=== PATIENT | female | born 1955 | race Caucasian/White ===

== ENCOUNTER → 2024-01-01 | Outpatient (CLI) | payer MEDICARE, BC ==
[2024-01-01 15:22] LABS: Chol/HDL Ratio 3.51 Ratio; LDL Cholesterol,Calculated 107.3 mg/dL (0.0-131.0); VLDL Calculation 18.56 mg/dL (5.00-40.00)
== END | disposition home or self-care (01) ==
LOC: LABWHC1 08:55
DX: E78.2 Mixed hyperlipidemia (principal)
CPT/HCPCS: 36415; 80061; 83036; 83695; 86141

== ENCOUNTER → 2024-01-14 | Outpatient (CLI) | payer MEDICARE, BC ==
[~2024-01-14] MED LIST: REGADENOSON 0.4 MG/5 ML SYRINGE IV PRN
--- NOTE | 2024-01-14 11:02 | NM ---
EXAMINATION TYPE: NM myocardial SPECT single DATE OF EXAM: 01/14/2024 COMPARISON: NONE CLINICAL INDICATION: Female, 68 years old with history of R06.09 DYSPNEA ON EXERTION; Following administration of 10.32 mCi Tc 99m Sestamibi. Images obtained 60 minutes post injection. FINDINGS: Calculated ejection fraction is 31%. There is global hypokinesis. Coronal defects are noted along the anterior mid and apical dahl. Stress imaging performed. IMPRESSION: 1. No stress imaging performed. 2. There is global hypokinesis with estimated LVEF of 31%. 3. Either attenuation artifact versus old infarcts mid to apical anterior wall.
--- NOTE | 2024-01-14 12:03 | CA ---
Transthoracic Echo Report Name: Eri Spangler Age: 68 Gender: F : 1955 Exam Date: 01/14/2024 08:03 Exam Location: [facility] Ht (in): 64 Wt (lb): 205 Ordering Physician: Solange Lopez MD Attending/Referring Phys: Solange Lopez MD Gallery Intern Enedelia Olmstead RDCS Procedure CPT: Indications: R06.09 Dyspnea on exertion Cardiac Hx: Technical Quality: Fair Contrast 1: Definity Total Dose (mL): 2 Contrast 2: Total Dose (mL): MEASUREMENTS (Male / Female) Normal Values 2D ECHO LV Diastolic Diameter PLAX 4.7 cm 4.2 - 5.9 / 3.9 - 5.3 cm LV Systolic Diameter PLAX 3.7 cm IVS Diastolic Thickness 1.3 cm 0.6 - 1.0 / 0.6 - 0.9 cm LVPW Diastolic Thickness 1.2 cm 0.6 - 1.0 / 0.6 - 0.9 cm LV Relative Wall Thickness 0.5 RV Internal Dim ED PLAX 3.7 cm LV Diastolic Volume MOD BP 136.8 cm??? 67 - 155 / 56 - 104 cm??? LV Systolic Volume MOD BP 91.1 cm??? 22 - 58 / 19 - 49 cm??? LV Ejection Fraction MOD BP 33.4 % >= 55 % LV Cardiac Index MOD BP 1597.7 cm???/min???m??? LV Diastolic Volume MOD 4C 122.4 cm??? LV Systolic Volume MOD 4C 81.9 cm??? LV Ejection Fraction MOD 4C 33.1 % LV Cardiac Index MOD 4C 1413.6 cm???/min???m??? LV Diastolic Length 4C 8.5 cm LV Systolic Length 4C 7.5 cm LV Diastolic Volume MOD 2C 147.9 cm??? LV Systolic Volume MOD 2C 92.4 cm??? LV Ejection Fraction MOD 2C 37.5 % LV Cardiac Index MOD 2C 1938.8 cm???/min???m??? LV Diastolic Length 2C 8.8 cm LV Systolic Length 2C 8.3 cm LA Volume 65.1 cm??? 18 - 58 / 22 - 52 cm??? LA Volume Index 31.1 cm???/m??? 16 - 28 cm???/m??? M-MODE Aortic Root Diameter MM 3.1 cm LA Systolic Diameter MM 3.1 cm LA Ao Ratio MM 1.0 AV Cusp Separation MM 1.8 cm DOPPLER AV Peak Velocity 132.2 cm/s AV Peak Gradient 7.0 mmHg AV Mean Velocity 97.5 cm/s AV Mean Gradient 4.1 mmHg AV Velocity Time Integral 26.7 cm LVOT Peak Velocity 89.2 cm/s LVOT Peak Gradient 3.2 mmHg LVOT Velocity Time Integral 18.6 cm MV Area PHT 2.7 cm??? Mitral E Point Velocity 42.6 cm/s Mitral A Point Velocity 95.7 cm/s Mitral E to A Ratio 0.4 MV Deceleration Time 284.5 ms MV E' Velocity 4.0 cm/s Mitral E to MV E' Ratio 10.8 TR Peak Velocity 196.6 cm/s TR Peak Gradient 15.5 mmHg Right Ventricular Systolic Press 20.2 mmHg FINDINGS Left Ventricle Mildly increased left ventricular wall thickness. Severely increased left ventricular diastolic volume. Severely increased left ventricular systolic volume. Moderately decreased left ventricular ejection fraction. Left ventricular ejection fraction is estimated at 30-35 %. Grade 1 diastolic dysfunction. Right Ventricle Mild right ventricular dilatation. Right ventricular systolic pressure within normal limits. Right Atrium Normal right atrial size. Left Atrium Mildly increased left atrial volume. Mildly increased left atrial area. Mitral Valve Structurally normal mitral valve. Mild mitral annular calcification. Mild mitral regurgitation. Aortic Valve Trileaflet aortic valve. No aortic valve stenosis or regurgitation. Tricuspid Valve Structurally normal tricuspid valve. Mild tricuspid regurgitation. Pulmonic Valve Structurally normal pulmonic valve. Trace pulmonic regurgitation. Pericardium No pericardial effusion. Aorta Normal size aortic root and proximal ascending aorta. CONCLUSIONS Moderate to severe LV systolic dysfunction with an ejection fraction of 30-35% there is diffuse global hypokinesis Inferior wall is akinetic suggestive of prior myocardial infarction Mild mitral regurgitation Previewed by: Dr. Scotty Schuster MD (Electronically Signed) Final Date: 14 January 2024 12:02
== END | disposition home or self-care (01) ==
LOC: RADNMMAIN 07:42
PROVIDERS: ATTEND Internal Medicine Interventional Cardiology
DX: R06.09 Other forms of dyspnea (principal)
CPT/HCPCS: 78451; C8929; A9500; Q9957; 93306

== ENCOUNTER → 2024-01-28 | Outpatient (CLI) | payer MEDICARE, BC ==
--- NOTE | 2024-02-02 19:19 | MM ---
Reason for Exam: Screening (asymptomatic). Patient History: Menarche at age 16. First Full-Term at age 27. Postmenopausal. Risk Values: Ana 5 year model risk: 1.7%. NCI Lifetime model risk: 6.1%. Prior Study Comparison: No prior studies available for comparison. Tissue Density: There are scattered areas of fibroglandular density. Findings: Analyzed By CAD. There are multiple asymmetric densities in the right breast, particularly on the CC view for which further evaluation is recommended. No suspicious calcification or other discrete abnormality is seen. Overall Assessment: Incomplete: need additional imaging evaluation, BI-RAD 0 Management: Special View Mammogram of the right breast. Diagnostic Breast Ultrasound of the right breast. . [facility] will attempt to contact patient to return for supplemental views and ultrasound if indicated. Electronically signed and approved by: Oliver Ni M.D. Radiologist
== END | disposition home or self-care (01) ==
LOC: RADMAMWWP 10:46
PROVIDERS: ATTEND Family Medicine
DX: Z12.31 Encounter for screening mammogram for malignant neoplasm of breast (principal); Z78.0 Asymptomatic menopausal state
CPT/HCPCS: 77063; 77067

== ENCOUNTER → 2024-02-04 | Outpatient (CLI) | payer MEDICARE, BC ==
--- NOTE | 2024-02-04 09:35 | MM ---
Reason for Exam: Additional evaluation requested from abnormal screening. Last screening mammogram was performed less than 1 month ago. Patient History: Menarche at age 16. First Full-Term at age 27. Postmenopausal. Risk Values: Ana 5 year model risk: 1.7%. NCI Lifetime model risk: 6.1%. Tissue Density: Right: There are scattered areas of fibroglandular density. Findings: Analyzed By CAD. 1.4 cm isodense focal asymmetry upper outer quadrant posterior depth. 6 mm nodularity 9:00 position middle depth. Central area on the CC view anterior to middle depth seen to persist but shows no clear correlate on the MLO or lateral views. The other more anterior central area does not clearly persist. Further ultrasound evaluation is recommended. Overall Assessment: Incomplete: need additional imaging evaluation, BI-RAD 0 Management: Diagnostic Breast Ultrasound of the right breast. Electronically signed and approved by: Oliver Ni M.D. Radiologist
--- NOTE | 2024-02-04 10:06 | USB ---
Reason for Exam: Additional evaluation requested from prior study. Patient History: Menarche at age 16. First Full-Term at age 27. Postmenopausal. Risk Values: Ana 5 year model risk: 1.7%. NCI Lifetime model risk: 6.1%. Technique: Method: Targeted. Prior Study Comparison: 01/28/2024 Bilateral MG 3D screening mammo w/cad, [facility]. Findings: The upper outer quadrant of the right breast, the axilla of the right breast and the retroareolar of the right breast were scanned. Targeted ultrasound upper outer quadrant right breast 9:00 to 12:00 including scanning of the subareolar region and axilla. * There is a lobulated circumscribed hypoechoic mass at the 9:00 position, 5 cm from the nipple measuring 9 x 7 x 4 mm. Likely a mammographic correlate. Some associated vascularity is noted. Tissue sampling recommended. * A few tiny scattered cysts are present measuring up to 2 mm. * No other solid or cystic lesion or axillary lymphadenopathy. * The other mammographic asymmetries can be reassessed at a 6 month follow-up mammogram. Overall Assessment: Suspicious, BI-RAD 4 Management: Ultrasound Core Biopsy of the right breast. Six-month follow-up right breast mammogram for the other mammographic asymmetries. Electronically signed and approved by: Oliver Ni M.D. Radiologist
== END | disposition home or self-care (01) ==
LOC: RADMAMWWP 09:09
PROVIDERS: ATTEND Family Medicine
DX: N60.11 Diffuse cystic mastopathy of right breast (principal); N63.15 Unspecified lump in the right breast, overlapping quadrants; R92.321 Mammographic fibroglandular density, right breast; Z78.0 Asymptomatic menopausal state
CPT/HCPCS: 77065; 76642; G0279; 77061

== ENCOUNTER → 2024-02-11 | Day surgery (SDC) | payer MEDICARE, BC ==
--- NOTE | 2024-02-17 11:10 | MM ---
Reason for Exam: Post Procedure Mammogram. Last screening mammogram was performed less than 1 month ago. Patient History: Menarche at age 16. First Full-Term at age 27. Postmenopausal. Risk Values: Ana 5 year model risk: 1.7%. NCI Lifetime model risk: 6.1%. Prior Study Comparison: 01/28/2024 Bilateral MG 3D screening mammo w/cad, [facility]. 02/04/2024 Right MG 3D work up w/cad RT, [facility]. Tissue Density: Right: There are scattered areas of fibroglandular density. Pathology Description: Location: 9 o'clock. Marker Left Behind. Needle Type: Mammotone Cores: 4 The procedure of ultrasound guided core biopsy was explained to the patient. Benefits, alternatives, and risks were discussed. An informed consent was then obtained. The 9 mm lobulated hypoechoic area 9:00 position right breast 5 cm from the nipple is identified and targeted for biopsy, suspected mammographic correlate. The patient was placed in supine positioning for imaging and for the procedure. The overlying skin was prepped and draped in usual sterile fashion. Lidocaine was used as anesthetic into the skin followed by lidocaine/epinephrine into the subcutaneous tissue up to area of concern in the 9:00 right breast. Under ultrasound guidance, a 13-gauge vacuum-assisted mammotome Elite biopsy gun was used to obtain 4 core samples. Following this, a butterfly clip was left in lesion. The patient tolerated the procedure well without any immediate complication. The patient was kept in the radiology department for short stay after the procedure and then discharged home in stable condition. Postprocedure mammogram: The patient was transferred to mammography for physician ordered post procedure mammogram for clip placement verification. Post biopsy mammogram shows clip at the mammographic nodularity of concern. If benign results, six-month follow-up mammogram to reassess the other right breast asymmetries. IMPRESSION: Successful, uncomplicated ultrasound guided core biopsy of area of concern, mammographic correlate, in the 9:00 right breast, full pathology results to follow. If benign results, six-month follow-up mammogram to reassess the other right breast asymmetries. Pathology Results: Result: Malignant. Pathology and radiology were reviewed. Findings are concordant. 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 See Surgical Pathology Cancer Case Summary and Comment. Overall Assessment: Malignant Assessment: MG diagnostic mammo RT wo CAD - Right: Known biopsy proven malignancy, BI-RAD 6. Management: Surgical Consultation of the right breast. Electronically signed and approved by: Oliver Ni M.D. Radiologist
== END ==
LOC: RADUSWWP 07:39
PROVIDERS: ATTEND Family Medicine
DX: D05.11 Intraductal carcinoma in situ of right breast (principal); R92.8 Other abnormal and inconclusive findings on diagnostic imaging of breast; N64.89 Other specified disorders of breast; Z78.0 Asymptomatic menopausal state
CPT/HCPCS: 88305; 88342; 88341; 77065; 19083; A4648

== ENCOUNTER → 2025-01-01 | Outpatient (CLI) | payer MEDICARE, BC ==
[2025-01-01 13:40] LABS: Basophils # (A) 0.08 X 10*3/uL (0.00-0.10); Basophils % (A) 1.5 %; Eosinophils # (A) 0.28 X 10*3/uL (0.04-0.35); Eosinophils % (A) 5.1 %; HCT 41.3 % (37.2-46.3); HGB 13.4 g/dL (12.0-15.0); Lymphocytes % (A) 25.5 %; MCH 31.3 pg (27.0-32.0); MCHC 32.4 g/dL (32.0-37.0); MCV 96.5 FL (80.0-97.0); Mean Platelet Volume 10.7 FL (9.5-12.2); Monocytes # (A) 0.51 X 10*3/uL (0.20-1.00); Monocytes % (A) 9.3 %; NRBC Per 100 WBC 0 X 10*3/uL (0.00-0.01); Neutrophils # (A) 3.19 X 10*3/uL (1.80-7.70); Neutrophils % (A) 58.2 %; Platelet Count 189 X 10*3/uL (140-440); RBC 4.28 X 10*6/uL (4.10-5.20); RDW 12.7 % (11.5-14.5); WBC 5.48 X 10*3/uL (4.50-10.00)
[2025-01-01 14:09] LABS: ALT 33 U/L (8-44); AST 30 U/L (13-35); Albumin 4.5 g/dL (3.8-4.9); Albumin/Globulin Ratio 1.73 Ratio (1.60-3.17); Alkaline Phosphatase 78 U/L (41-126); Blood Urea Nitrogen 19.2 mg/dL (9.0-27.0); Calcium 9.6 mg/dL (8.7-10.3); Carbon Dioxide 23.5 mmol/L (21.6-31.8); Chloride 107 mmol/L (96-109); Chol/HDL Ratio 2.89 Ratio; Globulin 2.6 g/dL (1.6-3.3); Glucose 108 mg/dL (70-110); LDL Cholesterol,Calculated 83.7 mg/dL (0.0-131.0); Potassium 4.4 mmol/L (3.5-5.5); Sodium 143 mmol/L (135-145); Total Bilirubin 0.7 mg/dL (0.3-1.2); Total Protein 7.1 g/dL (6.2-8.2)
== END | disposition home or self-care (01) ==
LOC: LABWHC1 09:17
PROVIDERS: ATTEND Physician Assistant
DX: I42.9 Cardiomyopathy, unspecified (principal); E78.5 Hyperlipidemia, unspecified; E55.9 Vitamin D deficiency, unspecified; R73.9 Hyperglycemia, unspecified; R94.6 Abnormal results of thyroid function studies
CPT/HCPCS: 36415; 80053; 80061; 82306; 83036; 84443; 85025